=== PATIENT | male | born 1980 | race Caucasian/White ===

== ENCOUNTER 2016-11-24 10:29 | Emergency (ER) | payer MEDICAID ==
--- NOTE | ~2016-11-24 | ER ---
PATIENT'S NAME: ALYSSA CASTLE [facility] AGE: 36 Y [address] ROOM: [place] [address] LOCATION: [facility] ADMIT DATE: 11/24/2016 ER/Outpatient Report DISCHARGE DATE: 11/24/2016 FAMILY PHYSICIAN: James Pablo MD ATTENDING PHYSICIAN: Tyrone Cooney CHIEF COMPLAINT: Concern for liver and kidney dysfunction. HISTORY OF PRESENT ILLNESS: The patient presents with his requesting kidney and liver evaluation for the stated reason of persistently elevated amphetamines on drug testing. The patient and his are seeking custody of their child, who is in Child Protective Services as the patient and his had been convicted of drug charges. Over the course of the last several weeks, the patient had downtrending amphetamine levels, but then they trended back up. They are concerned that he is being exposed to the drug in some other way as they are adamant that he has not had any exposure to methamphetamine since the middle of September. He does have schizophrenia and does take Vyvanse and everybody is supposedly aware of that. His patch continues to test "positive for methamphetamines." He is very adamant and explicit that he is not using anything besides prescription medicines and normal every day food available at local supermarket, and he is not taking any other remedy supplements, symptom relief medications, or anything else of that nature. They are concerned that his liver and kidney may not be processing the drugs appropriately, and that is causing the delay in returning to zero. PAST MEDICAL HISTORY: Notable for anxiety, bipolar, ADHD, schizophrenia, and drug abuse. SOCIAL HISTORY: Reports clean from amphetamines for the last few months. . MEDICATIONS: Please see list. ALLERGIES: NO KNOWN MEDICAL ALLERGIES. PHYSICAL EXAMINATION: VITAL SIGNS: Blood pressure 131/82, pulse 95, respiratory rate is 16, temperature 97.2, SpO2 is 97% on room air. Pain 0/10. GENERAL: An age-appropriate male. No obvious pain or distress. Resting upright on the exam table. PATIENT'S NAME: ALYSSA CASTLE [facility] AGE: 36 Y [address] ROOM: [place] [address] LOCATION: [facility] ADMIT DATE: 11/24/2016 ER/Outpatient Report DISCHARGE DATE: 11/24/2016 FAMILY PHYSICIAN: James Pablo MD ATTENDING PHYSICIAN: Tyrone Cooney NEURO: The patient is awake and alert. His affect is very flat. Speaks monotone. No obvious asymmetry on exam. HEENT: Normal to inspection and palpation. CHEST: Even and unlabored respirations. HEART: Appears regular with palpation of peripheral pulse. ABDOMEN: Benign. BACK: Nontender. EXTREMITIES: Warm and well perfused. LABORATORY DATA AND X-RAYS: CMS is without abnormality. IMPRESSION: No significant abnormality was appreciated. The patient came in for lab testing. EMERGENCY DEPARTMENT COURSE: The patient was seen and evaluated. There is no evidence of hepatobiliary or renal failure, that would explain his persistently elevated amphetamine levels on his testing. I have no clear alternative at this time from a medical standpoint for his persistently elevated levels other than possible cross- reactivity with his Vyvanse. The patient was discharged with that information. No further diagnosis made. MD KAREN ROCHE/modl /[id number] d: 11/24/162017 t: 12/08/162131, OUTPATIENT REPORT
[2016-11-24 11:33] LABS: ALK PHOS 103 IU/L (33-138); ALT 54 IU/L (12-78); BLOOD UREA NITROGEN 13 mg/dL (6-24); CALCIUM 9.1 mg/dL (8.5-10.5); CHLORIDE 109 mMol/L (96-110); CO2 24 mMol/L (22-32); CREATININE 1.1 mg/dL (0.6-1.3); ESTIMATED GFR (MDRD EQUATION) > 60; SODIUM 140 mMol/L (135-145); TOTAL BILIRUBIN 0.2 mg/dL (0.0-1.5); TOTAL PROTEIN 8.2 g/dL (6.0-8.4)
[2016-11-24 11:34] LABS: ANION GAP 11.3 (10.0-19.0); AST 33 IU/L (10-40); POTASSIUM 4.3 mMol/L (3.7-5.1)
== END 2016-11-24 12:08 | disposition disaster alternative care site (69) ==
LOC: GMED 10:29
PROVIDERS: Emergency Medicine
DX: Z04.8 Encounter for examination and observation for other specified reasons (principal); F31.9 Bipolar disorder, unspecified; F90.9 Attention-deficit hyperactivity disorder, unspecified type; F20.9 Schizophrenia, unspecified; F41.9 Anxiety disorder, unspecified; Z79.899 Other long term (current) drug therapy

== ENCOUNTER 2017-03-09 22:12 | Inpatient (IN) | payer MEDICAID, OTHER ==
[~2017-03-09] VITALS: Ht 200.7 cm; Wt 107.7 kg
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
[2017-03-09 22:28] LABS: BASOPHIL # 0.1 K/uL (0.0-0.2); BASOPHIL % 0.6 %; EOSINOPHIL # 0.3 K/uL (0.0-0.5); EOSINOPHIL % 2.5 %; HEMATOCRIT 43.3 % (37.0-53.0); HEMOGLOBIN 14.4 g/dL (12.0-17.0); IMMATURE GRANULOCYTE # 0.1 K/uL (0.0-0.3); IMMATURE GRANULOCYTE % 0.6 %; LYMPHOCYTE # 1.7 K/uL (0.8-4.0); LYMPHOCYTE % 15.8 %; MCH 28.3 pg (27.0-34.0); MCHC 33.3 gm/dL (32.0-36.5); MCV 85.2 fl (83.0-98.0); MONOCYTE # 0.7 K/uL (0.0-1.0); MONOCYTE % 6.5 %; MPV 8.6 fl (9.4-12.4); NRBC % 0 /100WBC (0-0.00); PLATELET COUNT 389 K/uL (150-450); RBC 5.08 M/uL (4.00-6.00); RDW-CV 13.1 % (11.9-14.6); WBC 10.7 K/uL (4.0-11.0)
[2017-03-09 22:42] LABS: ALBUMIN 3.9 gm/dL (3.5-5.0); CALCIUM 9.1 mg/dL (8.5-10.5); CREATININE 1.3 mg/dL (0.6-1.3); TOTAL PROTEIN 7.8 g/dL (6.0-8.4)
[2017-03-09 22:47] LABS: ANION GAP 11.1 (10.0-19.0); POTASSIUM 5.1 mMol/L (3.7-5.1); TOTAL BILIRUBIN 0.5 mg/dL (0.0-1.5)
[2017-03-10] MEDS ORDERED: HALDOL5 MG PO ×2 (02:22→02:23)
[2017-03-10] MEDS ORDERED: KLONOPIN1 MG PO ×4 (02:24→02:27)
[2017-03-10] MEDS ORDERED: GEODON20 MG PO (02:26)
--- NOTE | 2017-03-10 05:06 | NUR ---
Significant Event: PATIENT ARRIVES TO UNIT AT 0103 VIA CART FROM ER. ALERT/ORIENTED, C/O NECK PAIN RATED A 9 ON A 0-10 SCALE, PRN NORCO GIVEN. LS CLEAR, SPO2 >90% ON RA. BS X4. URINAL AT BEDSIDE, PATIENT DOES NOT VOID FOR THIS NURSE. R) HAND PIV WITH GOOD BLOOD RETURN. [place] J COLLAR ON AT ALL TIMES. ABRASIONS NOTED TO SUSAN HIPS ET RIGHT DELTOID/SHOULDER. PATIENT BATHED UPON ARRIVAL. Follow up:CONTINUE
[2017-03-10] MEDS ORDERED: TRAZODONE HCL300 MG PO (09:47)
[2017-03-10] MEDS ORDERED: VYVANSE70 MG PO (09:47)
--- NOTE | 2017-03-10 15:28 | NUR ---
Significant Event: PT A&O x3. VSS, on room air, no neurological defecits. Denies n/t. PT c/o pain to neck, rates at 7-9, norco 2 tabs given at 1010. [place] J collar on at all times. Ambulates with gait belt and SBA. Follow up:
--- NOTE | 2017-03-10 16:32 | NUR ---
Introduced self and role of care management to pt. He lives in [place] with his . He is not working but is currently on SSI and his does not work but is trying to get on SSI. He states his neck hurts but was up walking and unsure of plans at this time. He plans on home when ready.
--- NOTE | 2017-03-11 05:00 | NUR ---
Significant Event: Patient A/O x 3. Denies N/T. Follows commands. Moves all extremities spontaneously. Room air. [place] J collar on at all times. Voids per urinal. No bm, BS active. VSS. Regular diet. SBA. Follow up: Alarms at all times.
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
--- NOTE | 2017-03-12 05:57 | NUR ---
Significant Event: Follow up: PATINT VITAL SIGNS WNL, SLEEP ALL NIGHT, REFUSE TO WEAR TELEMERY, WILL LET STAFF TAKE VS EVERY FOUR HOURS, PAIN 04/25 NECK, WEARS [place] J COLOR
[2017-03-12] MEDS ORDERED: NORCO 5-325 TA1 EACH PO (14:19)
[2017-03-12] MEDS ORDERED: FLEXERIL10 MG PO (14:20)
== END 2017-03-12 15:40 | disposition disaster alternative care site (69) | DRG 552 ==
LOC: GACC 22:12 → GICU 03-10 00:56
PROVIDERS: Emergency Medicine; ADMIT Neurological Surgery
DX: S12.100A Unspecified displaced fracture of second cervical vertebra, initial encounter for closed fracture (principal); F20.9 Schizophrenia, unspecified; S12.500A Unspecified displaced fracture of sixth cervical vertebra, initial encounter for closed fracture; S12.600A Unspecified displaced fracture of seventh cervical vertebra, initial encounter for closed fracture; V49.9XXA Car occupant (driver) (passenger) injured in unspecified traffic accident, initial encounter; Y92.410 Unspecified street and highway as the place of occurrence of the external cause; Y93.9 Activity, unspecified; F90.9 Attention-deficit hyperactivity disorder, unspecified type
CPT/HCPCS: J1170; J1650; J2270; L0172; Q9967

== ENCOUNTER → 2017-03-16 | Emergency (ER) | payer MEDICAID, OTHER ==
[~2017-03-16] MED LIST: ADVIL200 MG PO; FLEXERIL10 MG PO; GEODON20 MG PO; HALDOL5 MG PO; KLONOPIN1 MG PO; NORCO 5-325 TA1 EACH PO; PERCOCET 5-3251 EACH PO; TRAZODONE HCL300 MG PO; VYVANSE70 MG PO
== END | disposition disaster alternative care site (69) ==
LOC: GAMB 17:35
DX: M54.2 Cervicalgia (principal); S12.9XXD Fracture of neck, unspecified, subsequent encounter; R42 Dizziness and giddiness; Z79.891 Long term (current) use of opiate analgesic; Z79.899 Other long term (current) drug therapy; W19.XXXA Unspecified fall, initial encounter

== ENCOUNTER → 2017-04-13 | Outpatient (CLI) | payer MEDICAID | END | disposition disaster alternative care site (69) | LOC: GRAD 04-12 11:30 | DX: M54.2 Cervicalgia (principal); S12.691D Other nondisplaced fracture of seventh cervical vertebra, subsequent encounter for fracture with routine healing; S12.591D Other nondisplaced fracture of sixth cervical vertebra, subsequent encounter for fracture with routine healing; S12.191D Other nondisplaced fracture of second cervical vertebra, subsequent encounter for fracture with routine healing; X58.XXXD Exposure to other specified factors, subsequent encounter ==

== ENCOUNTER 2017-04-21 11:27 | Day surgery (SDC) | payer MEDICAID ==
[~2017-04-21] VITALS: Ht 200.7 cm; Wt 103.2 kg
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
[~2017-04-21 11:27] MED LIST changes: -ADVIL200 MG PO; -PERCOCET 5-3251 EACH PO
[2017-04-21] MEDS ORDERED: ADVIL200 MG PO (12:01)
[2017-04-21 13:34] LABS: BASOPHIL % 0.6 %; EOSINOPHIL # 0.2 K/uL (0.0-0.5); EOSINOPHIL % 2.6 %; HEMATOCRIT 42.8 % (37.0-53.0); HEMOGLOBIN 14.2 g/dL (12.0-17.0); IMMATURE GRANULOCYTE % 0.1 %; LYMPHOCYTE # 2.1 K/uL (0.8-4.0); LYMPHOCYTE % 29.1 %; MCH 28.3 pg (27.0-34.0); MCHC 33.2 gm/dL (32.0-36.5); MCV 85.4 fl (83.0-98.0); MONOCYTE # 0.5 K/uL (0.0-1.0); MONOCYTE % 6.4 %; MPV 8.3 fl (9.4-12.4); NEUTROPHIL # (ANC) 4.4 K/uL (1.4-9.0); NEUTROPHIL % 61.2 %; NRBC % 0 /100WBC (0-0.00); RBC 5.01 M/uL (4.00-6.00); RDW-CV 13.3 % (11.9-14.6); WBC 7.2 K/uL (4.0-11.0)
[2017-04-21 13:36] LABS: PLATELET COUNT 296 K/uL (150-450)
[2017-04-21 13:39] LABS: INR - (THERAPEUTIC) 1.02 (0.92-1.07); PROTIME 10.7 SECONDS (9.8-11.4); PTT 26 SECONDS (25-32)
[2017-04-21 13:51] LABS: ALK PHOS 100 IU/L (33-138); ALT 25 IU/L (12-78); ANION GAP 8.2 (10.0-19.0); AST 16 IU/L (10-40); BLOOD UREA NITROGEN 15 mg/dL (6-24); CALCIUM 8.9 mg/dL (8.5-10.5); CHLORIDE 109 mMol/L (96-110); CO2 28 mMol/L (22-32); POTASSIUM 4.2 mMol/L (3.7-5.1); SODIUM 141 mMol/L (135-145); TOTAL BILIRUBIN 0.6 mg/dL (0.0-1.5); TOTAL PROTEIN 7.5 g/dL (6.0-8.4)
--- NOTE | 2017-04-21 19:14 | NUR ---
Significant Event: Received from pacu @ 9420. Will have 2nd 30 min vs due @ 1930. Neuro checks WNL. Hard cervical on. Denies n/t, or arm weakness. Pt is drowsy, awakens to name. Ant neck dressing c/d/i. Follow up:
--- NOTE | 2017-04-22 03:51 | NUR ---
Significant Event: Alert/oriented x3. Has slept most of shift. Did not want pain meds. Refused Klonopin at 2200, stated he does not want 0700 dose. 1 void per urinal of 525 mls, had refused to get bladder scanned or straight cath after not urinating, voided at 0040. Saline lock in left wrist. Latex allergy. VSS. CSM WNL. Hard cervical collar on. No drainage noted from dressing. Possible dismissal today. Follow up:
--- NOTE | 2017-04-22 10:20 | NUR ---
Introduced self/role to patient, sleeping. Denied any discharge needs. No DME needed. Plans on home today. Added my name to his marker board, will follow.
--- NOTE | 2017-04-22 17:46 | NUR ---
Pt alert, oriented. Has been up on own in his room to bathroom, otherwise lies flat in bed. Hard collar on. Dressing to neck dry and intact. CSM intact upper extremities. Has rated pain from 4 to 9. 2 percocet about 1600 and pain down to 4. Pt voids well. has sore throat. He is awaiting Dr Belle visit as would like to go home. Pt cooperative with cares.
[2017-04-22] MEDS ORDERED: PERCOCET 5-3251 EACH PO (18:48)
[2017-04-22] MEDS ORDERED: NORCO 5-325 TA1 EACH PO (18:50)
--- NOTE | 2017-04-23 00:26 | NUR ---
Dismissal instructions were given to the patient and the LORE information was given as well. Instructions were gone over with the patient with myself and with the help of Juana Fournier. Juana removed the IV. Patient was dismissed at 1925 per private car to home. Patient stated he had no further questions or concerns and understood the instructions.
== END 2017-04-22 19:25 | disposition disaster alternative care site (69) ==
LOC: GSDC 11:27 → GPOC 13:00 → G3N 17:35 → GSDC 04-22 19:25
PROVIDERS: Neurological Surgery
DX: S12.600D Unspecified displaced fracture of seventh cervical vertebra, subsequent encounter for fracture with routine healing (principal); S12.500D Unspecified displaced fracture of sixth cervical vertebra, subsequent encounter for fracture with routine healing; F17.200 Nicotine dependence, unspecified, uncomplicated; F32.9 Major depressive disorder, single episode, unspecified; F41.9 Anxiety disorder, unspecified; F90.9 Attention-deficit hyperactivity disorder, unspecified type; Z98.818 Other dental procedure status; Z98.890 Other specified postprocedural states
CPT/HCPCS: C1713; J0690; J1100; J1170; J1200; J2001; J2270; J2405; J3010; J7030